=== PATIENT | male | born 1990 | race Caucasian/White ===

== ENCOUNTER 2021-12-11 11:01 | Emergency (ER) | payer OTHER ==
[~2021-12-11] VITALS: Ht 182.9 cm; Wt 86.3 kg
[~2021-12-11 11:01] MED LIST: ZOFRAN4 MG/TAB PO; ZPAK PO
[2021-12-11 12:58] VITALS: BP 131/88
== END 2021-12-11 13:01 | disposition left against medical advice (07) | DRG 563 ==
LOC: ED 11:01
DX: S62.630B Displaced fracture of distal phalanx of right index finger, initial encounter for open fracture (principal); W31.2XXA Contact with powered woodworking and forming machines, initial encounter; Y93.H3 Activity, building and construction; Y92.89 Other specified places as the place of occurrence of the external cause; Y99.0 Civilian activity done for income or pay; Z91.19 Patient's noncompliance with other medical treatment and regimen